=== PATIENT | female | born 1935 | race Caucasian/White ===

== ENCOUNTER 2020-03-21 19:58 | Inpatient (IN) | payer MEDICARE, OTHER ==
[~2020-03-21] VITALS: Ht 152.4 cm; Wt 47.6 kg
--- NOTE | 2020-03-21 20:50 | NUR ---
patient Monico, from a house in [facility] came in for r/o PNA. On 02 @ 4lmp. Connected to the monitor and pulse ox. kept comfortable, will continue to monitor accordingly.
[2020-03-21 20:51] LABS: BASOPHILS # (AUTO) 0.1 /CMM (0.0-0.2); BASOPHILS % (AUTO) 0.4 % (0.0-2.0); EOSINOPHILS % (AUTO) 0.2 % (0.0-6.0); HEMATOCRIT 39 % (33-45); HEMOGLOBIN 11.8 g/dL (11.5-14.8); LYMPHOCYTES # (AUTO) 2.4 /CMM (0.8-4.8); LYMPHOCYTES % (AUTO) 17.9 % (20.0-44.0); MEAN CORPUSCULAR HGB CONC 30 g/dl (31.0-36.0); MEAN CORPUSCULAR VOLUME 98 fL (82-100); MONOCYTES # (AUTO) 1.1 /CMM (0.1-1.30); MONOCYTES % (AUTO) 8.3 % (2.0-12.0); NEUTROPHILS # (AUTO) 9.9 /CMM (1.8-8.9); NEUTROPHILS % (AUTO) 73.2 % (43.0-81.0); PLATELET COUNT (AUTO) 476 /CMM (150-450); RED BLOOD CELL COUNT(AUTO) 4.04 MIL/uL (4.0-5.2); WHITE BLOOD COUNT (AUTO) 13.5 K/uL (4.3-11.0)
--- NOTE | 2020-03-21 20:51 | NUR ---
IV access initiated and blood drawned and sent to lab.
--- NOTE | 2020-03-21 20:51 | NUR ---
urine collected and sent to lab
[2020-03-21 20:54] LABS: BILIRUBIN,URINE Negative (NEGATIVE); BLOOD, URINE Trace-lysed Ery/uL (NEGATIVE); COLOR,URINE YELLOW (YELLOW); LEUKOCYTE ESTERASE ,URINE Small (NEGATIVE); NITRITE, URINE Negative (NEGATIVE); PROTEIN,URINE >=300 mg/dl (NEGATIVE); UGLUCOSE Negative (NEGATIVE)
[2020-03-21 21:00] LABS: BACTERIA,URINE 2+ /HPF (None Seen); SQUAMOUS EPITHELIAL CELL,UR Few /HPF (None Seen)
[2020-03-21 21:14] LABS: ALANINE AMINOTRANSFERASE 147 U/L (12-78); ALBUMIN 3.2 g/dL (3.4-5.0); ALKALINE PHOSPHATASE 218 U/L (46-116); ASPARTATE AMINOTRANSFERASE 136 U/L (15-37); BILIRUBIN,DIRECT 0.2 mg/dL (0.0-0.2); BILIRUBIN,TOTAL 0.4 mg/dL (0.2-1.0); CALCIUM, SERUM 11.5 mg/dL (8.5-10.1); CARBON DIOXIDE 25 mmol/L (21-32); CHLORIDE 122 mmol/L (98-107); CREATININE 2.6 mg/dL (0.6-1.3); GLUCOSE 135 mg/dL (74-106); POTASSIUM 4.8 mmol/L (3.5-5.1); TOTAL PROTEIN, SERUM 8.8 g/dL (6.4-8.2)
[2020-03-21 21:48] LABS: SODIUM SERUM 161 mmol/L (136-145); UREA NITROGEN, BLOOD 80 mg/dL (7-18)
[2020-03-21] MEDS ORDERED: NS 0.9% IV ONE (22:00)
[2020-03-21] MEDS ORDERED: ASPIRIN 300 MG/SUPP.RECT RC ONE (22:00)
[2020-03-21] MEDS ORDERED: MEROPENEM 1,000 MG in IV NS 0.9% 100 ML IV ONE (22:00)
[2020-03-21] MEDS ORDERED: TRAZ-182 PO (22:55)
[2020-03-21] MEDS ORDERED: HYDR-4077 PO (22:55)
[2020-03-21] MEDS ORDERED: CARB1TAB21 PO (22:55)
[2020-03-21] MEDS ORDERED: RISP0.5T5 PO (22:55)
[2020-03-21] MEDS ORDERED: METO100T14 PO (22:55)
[2020-03-21] MEDS ORDERED: FURO-144 PO (22:55)
[2020-03-21] MEDS ORDERED: DILT180C93 PO (22:55)
--- NOTE | 2020-03-21 22:55 | NUR ---
PER DAUGHTER, PT IS ON HOSPICE. POLST: DNR, SELECTIVE MEASURE, DNI, WILL BRING COPY TO HOSPITAL TOMORROW. MED RECON DONE
--- NOTE | 2020-03-21 22:55 | NUR ---
YFN [phone]
--- NOTE | 2020-03-21 23:01 | NUR ---
REPORT GIVEN TO PERLA MOTA FOR DIANA PT WILLB E TRANSPORTED TO 2ND FLOOR
[2020-03-21] MEDS ORDERED: MAGNESIUM HYDROXIDE 30 ML UDC PO PRN (23:30)
[2020-03-21] MEDS ORDERED: ONDANSETRON HCL/PF 4 MG/2 ML VIAL IVP PRN (23:30)
[2020-03-21] MEDS ORDERED: DEXTROSE 50%-WATER 50 ML DISP.SYRIN IV PRN (23:30)
[2020-03-21] MEDS ORDERED: ACETAMINOPHEN 325 MG TABLET PO PRN (23:30)
[2020-03-21] MEDS ORDERED: MAG HYDROX/AL HYDROX/SIMETH 30 ML UDC PO PRN (23:30)
[2020-03-21] MEDS ORDERED: *INSULIN REGULAR(HUMULIN R)HUM 100 UNIT/ML VIAL SQ PRN (23:30)
[2020-03-21] MEDS ORDERED: Z GUARD REMEDY 2 OZ OINT TP PRN (23:30)
[2020-03-21] MEDS ORDERED: HYDROCODONE/APAP 5/325MG TABLET PO PRN (23:30)
[2020-03-22] VITALS: BP 122/75
--- NOTE | 2020-03-22 01:03 | NUR ---
want to clarify code status dpoa number not working; not listed on face sheet. -attempted to call daughter celina flores listed by kayley jenkins not working. states number needs to have 1 dialed before despite dialing number does not pass through to ring and error message results. call made to er and requested call back from kayley augustin states he is busy with patient. Addendum: 03/22/20 at 5087 by NII BELL RN discovered that with her phone land line did not work; connected with cell phone
[2020-03-22] MEDS ORDERED: TEMA30CA PO (01:44)
--- NOTE | 2020-03-22 01:45 | NUR ---
called and spoke to celina admission assessment performed. states she will fax polst record tomorrow am. and will fax some of pts medical record with medications to place on chart. was on [facility] prior to revocation. upadted with poc questions concerns addressed.
--- NOTE | 2020-03-22 01:46 | NUR ---
CALL MADE TO ER FACE SHEET UPDATED. WITH DTR AND GRAND DTR. FIRST CONTACT: YFN DEGROOT GRAND DAGTER GUICHO DEGROOT PHONE [phone] (SPEAKS ONLY BELIZEAN)
[2020-03-22] MEDS: IV 1/2NS 1000 ML 1,000 ML IV SCH ×2 (02:19→12:23)
[2020-03-22] MEDS ORDERED: CEFTRIAXONE 1 G VIAL ONE (02:42)
[2020-03-22] MEDS: CEFTRIAXONE 1 G in IV D5W 50 ML IV SCH ×2 (03:22→23:43)
[2020-03-22 04:00] VITALS: BP 130/75
[2020-03-22] MEDS: BLOOD SUGAR DIAGNOSTIC 1 EACH STRIP VI SCH ×4 (07:32→23:44)
[2020-03-22 07:34] LABS: BASOPHILS % (AUTO) 0.3 % (0.0-2.0); EOSINOPHILS % (AUTO) 0.4 % (0.0-6.0); HEMATOCRIT 31 % (33-45); HEMOGLOBIN 9.3 g/dL (11.5-14.8); LYMPHOCYTES # (AUTO) 1.6 /CMM (0.8-4.8); LYMPHOCYTES % (AUTO) 12.6 % (20.0-44.0); MEAN CORPUSCULAR HGB CONC 31 g/dl (31.0-36.0); MEAN CORPUSCULAR VOLUME 96 fL (82-100); MONOCYTES # (AUTO) 1.1 /CMM (0.1-1.30); MONOCYTES % (AUTO) 8.7 % (2.0-12.0); NEUTROPHILS # (AUTO) 9.9 /CMM (1.8-8.9); PLATELET COUNT (AUTO) 335 /CMM (150-450); RED BLOOD CELL COUNT(AUTO) 3.18 MIL/uL (4.0-5.2); WHITE BLOOD COUNT (AUTO) 12.8 K/uL (4.3-11.0)
--- NOTE | 2020-03-22 07:35 | NUR ---
IRON MELTER NOTE PATIENT IN BED RESTING COMFORTABLY. PATIENT IN NO ACUTE DISTRESS. NO SOB NOTED. PATIENT BREATHING IS EVEN AND UNLABORED. PATIENT ON CARDIAC MONITORING READING SINUS RHYTHM HR 98. PATIENT SAFETY PRECAUTIONS IN PLACE. BED ALARM IS ON. PATIENT BED IS LOCKED AND IN LOWEST POSITION. CALL LIGHT WITHIN REACH. WILL CONTINUE TO MONITOR.
[2020-03-22 07:46] LABS: CHOLESTEROL 172 mg/dL (<200); HDL CHOLESTEROL 36 mg/dL (40-60); LDL 107 mg/dL (0-99); TRIGLYCERIDES 111 mg/dL (30-150)
[2020-03-22 07:51] LABS: CALCIUM, SERUM 9.3 mg/dL (8.5-10.1); CARBON DIOXIDE 22 mmol/L (21-32); CREATININE 2.1 mg/dL (0.6-1.3); GLUCOSE 102 mg/dL (74-106); MAGNESIUM 3.1 mg/dL (1.8-2.4); PHOSPHORUS 3.2 mg/dL (2.5-4.9); POTASSIUM 4.3 mmol/L (3.5-5.1); UREA NITROGEN, BLOOD 70 mg/dL (7-18)
[2020-03-22 08:00] VITALS: BP 124/81
[2020-03-22 08:09] LABS: CHLORIDE 126 mmol/L (98-107)
[2020-03-22 08:10] LABS: SODIUM SERUM 162 mmol/L (136-145)
[2020-03-22] MEDS: DILTIAZEM HCL CD 180 MG PO SCH (09:08)
[2020-03-22] MEDS: hydrALAZINE HCL 50 MG TABLET PO SCH ×2 (09:08→17:59)
[2020-03-22] MEDS: CARBIDOPA/LEVODOPA 25/100 MG 1 UDTAB PO SCH ×3 (09:08→18:00)
[2020-03-22] MEDS: METOPROLOL TARTRATE 50 MG TABLET PO SCH ×2 (09:09→18:00)
--- NOTE | 2020-03-22 09:11 | NUR ---
WOUND CARE CONSULT: REVIEWED CHART, NURSING DOCUMENTATION AND PHOTO WHICH INDICATES INTACT DEEP TISSUE INJURY TO SACRUM EXTENDING TO LEFT BUTTOCK, PRESENT ON ADMISSION. RECOMMENDATIONS MADE FOR SKIN PROTECTION. DISCUSSED WITH NURSING STAFF. PT TO BE PLACED ON ALVARO ISOFLEX LOW AIRLOSS BED. MD IN AGREEMENT WITH PLAN OF CARE.
--- NOTE | 2020-03-22 10:13 | NUR ---
CHIEF PSYCHOLOGY NOTE PATIENT SODIUM LEVEL WAS 162. DR. BLANCHARD MADE AWARE. NO NEW ORDERS AT THIS TIME.
--- NOTE | 2020-03-22 11:42 | NUR ---
INTERNATIONAL SALES REPRESENTATIVE NOTE DR. BLANCHARD SEEN AND EVALUATED PATIENT. INFORMED DR. BLANCHARD OF VTE SCORE AND NEED FOR CHEMICAL PROPHYLAXIS. PER MD NO ORDER FOR CHEMICAL PROPHYLAXIS.
--- NOTE | 2020-03-22 11:50 | NUR ---
IT WEB DEVELOPMENT CONSULTANT NOTE PATIENT BLOOD SUGAR IS 101. NO INSULIN COVERAGE NEEDED PER PROTOCOL.
[2020-03-22 12:00] VITALS: BP 100/63
--- NOTE | 2020-03-22 12:06 | NUR ---
STIFF STRAW HAT WASHER NOTE PER JANET OWNER/PHOTOGRAPHER RECOMMENDATION TO START ON ENSURE BID.
[2020-03-22] MEDS: ENSURE ENLIVE 237 ML LIQUID (VANILLA) PO SCH ×2 (12:54→17:59)
--- NOTE | 2020-03-22 15:43 | NUR ---
CHERRY GROWER NOTE SPOKE WITH DAUGHTER ANGELIC REGARDING IF SHE WILL FAX IN POLST. PER DAUGHTER SHE WILL BUT HAVE NO RECEIVED AT THIS TIME. FOLLOWED UP AND TRIED TO CALL DAUGHTER AND GRAND DAUGHTER YFN BUT NO ANSWER FROM PHONE CALLS.
[2020-03-22 16:00] VITALS: BP 124/72
[2020-03-22 16:46] LABS: C-REACTIVE PROTEIN 8.1 mg/dL (0.0-0.9)
[2020-03-22] MEDS ORDERED: ENSURE ENLIVE CHOC 237 ML CAN PO SCH (17:00)
--- NOTE | 2020-03-22 17:30 | NUR ---
SENIOR BILLING CONSULTANT NOTE PATIENT BLOOD SUGAR IS 86. NO INSULIN COVERAGE NEEDED PER PROTOCOL.
[2020-03-22] MEDS: risperiDONE 0.25 MG TABLET PO SCH (17:59)
[2020-03-22] MEDS: TRAZODONE 50 MG TABLET PO SCH (18:00)
--- NOTE | 2020-03-22 18:45 | NUR ---
SENIOR INTERNAL AUDITOR NOTE PATIENT IN BED RESTING COMFORTABLY. PATIENT IN NO ACUTE DISTRESS. NO SOB NOTED. PATIENT BREATHING IS EVEN AND UNLABORED. PATIENT ON CARDIAC MONITORING READING SINUS RHYTHM HR 87. PATIENT KEPT CLEAN, DRY, AND COMFORTABLE. PATIENT SAFETY PRECAUTIONS IN PLACE. BED ALARM IS ON. PATIENT BED IS LOCKED AND IN LOWEST POSITION. CALL LIGHT WITHIN REACH. WILL ENDORSE CARE TO PM SHIFT FOR DIANA.
--- NOTE | 2020-03-22 19:25 | NUR ---
BOTTLER NOTE SPOKE WITH YFN GRANDDAUGHTER SHE FAXED POLST BUT POLST IMAGE IS DARK. PER YFN SHE WILL DROP OFF A CLEARER COPY TOMORROW TO THE HOSPITAL.
--- NOTE | 2020-03-22 19:35 | NUR ---
ENVIRONMENTAL STUDIES PROGRAM DIRECTOR NOTES RECEIVED PATIENT IN BED RESTING COMFORTABLY. NO ACUTE DISTRESS. NO SOB NOTED. PATIENT BREATHING IS EVEN AND UNLABORED. PATIENT ON CARDIAC MONITORING READING SINUS RHYTHM HR 90s WITH PVCs. PATIENT KEPT CLEAN, DRY, AND COMFORTABLE. PATIENT SAFETY PRECAUTIONS IN PLACE. BED ALARM IS ON. PATIENT BED IS LOCKED AND IN LOWEST POSITION. CALL LIGHT WITHIN REACH. ALL NEEDS ANTICIPATED. WILL CONTINUE TO MONITOR ACCORDINGLY.
[2020-03-23 00:25] VITALS: BP 144/85
[2020-03-23] MEDS: IV 1/2NS 1000 ML 1,000 ML IV SCH ×3 (03:20→21:35)
[2020-03-23 04:58] VITALS: BP 145/78
[2020-03-23] MEDS: BLOOD SUGAR DIAGNOSTIC 1 EACH STRIP VI SCH ×4 (07:30→21:21)
--- NOTE | 2020-03-23 07:30 | NUR ---
OIL WELL DRILLING MANAGER NOTES ALL NEEDS ATTENDED. PATIENT IN BED RESTING COMFORTABLY. NO ACUTE DISTRESS. NO SOB NOTED. PATIENT BREATHING IS EVEN AND UNLABORED. PATIENT ON CARDIAC MONITORING READING SINUS RHYTHM HR 90s WITH PVCs. PATIENT KEPT CLEAN, DRY, AND COMFORTABLE. PATIENT SAFETY PRECAUTIONS IN PLACE. BED ALARM IS ON. PATIENT BED IS LOCKED AND IN LOWEST POSITION. CALL LIGHT WITHIN REACH. ALL NEEDS ANTICIPATED. ENDORSE FOR DIANA
--- NOTE | 2020-03-23 07:35 | NUR ---
MS RN RECEIVED ON BED, AWAKE,ORIENTED TO SELF,NOT IN ANY FORM OF DISTRESS, RESPIRATIONS EVEN AND UNLABORED,NO SOB NOTHET, WILL MONITOR PATIENT.
--- NOTE | 2020-03-23 08:00 | NUR ---
MS RN SPEECH EVAL DONE, W/ THIS LIQUIDS RECCOMENDED.
[2020-03-23 08:01] LABS: CALCIUM, SERUM 9.4 mg/dL (8.5-10.1); CARBON DIOXIDE 22 mmol/L (21-32); CHLORIDE 125 mmol/L (98-107); CREATININE 1.6 mg/dL (0.6-1.3); GLUCOSE 98 mg/dL (74-106); MAGNESIUM 2.9 mg/dL (1.8-2.4); PHOSPHORUS 2.5 mg/dL (2.5-4.9); POTASSIUM 4.2 mmol/L (3.5-5.1); UREA NITROGEN, BLOOD 54 mg/dL (7-18)
[2020-03-23 08:08] LABS: BASOPHILS # (AUTO) 0.1 /CMM (0.0-0.2); BASOPHILS % (AUTO) 0.6 % (0.0-2.0); EOSINOPHILS % (AUTO) 0.8 % (0.0-6.0); HEMATOCRIT 30 % (33-45); HEMOGLOBIN 9.4 g/dL (11.5-14.8); LYMPHOCYTES # (AUTO) 1.7 /CMM (0.8-4.8); LYMPHOCYTES % (AUTO) 13.2 % (20.0-44.0); MEAN CORPUSCULAR HGB CONC 32 g/dl (31.0-36.0); MEAN CORPUSCULAR VOLUME 95 fL (82-100); MONOCYTES # (AUTO) 0.8 /CMM (0.1-1.30); NEUTROPHILS # (AUTO) 9.9 /CMM (1.8-8.9); NEUTROPHILS % (AUTO) 79.4 % (43.0-81.0); PLATELET COUNT (AUTO) 288 /CMM (150-450); RED BLOOD CELL COUNT(AUTO) 3.11 MIL/uL (4.0-5.2); WHITE BLOOD COUNT (AUTO) 12.5 K/uL (4.3-11.0)
[2020-03-23 08:36] LABS: SODIUM SERUM 159 mmol/L (136-145)
[2020-03-23 09:04] VITALS: BP 146/76
[2020-03-23] MEDS: CARBIDOPA/LEVODOPA 25/100 MG 1 UDTAB PO SCH ×3 (09:54→18:30)
[2020-03-23] MEDS: hydrALAZINE HCL 50 MG TABLET PO SCH ×2 (09:54→18:29)
[2020-03-23] MEDS: METOPROLOL TARTRATE 50 MG TABLET PO SCH ×2 (09:55→18:30)
[2020-03-23] MEDS: DILTIAZEM HCL CD 180 MG PO SCH (09:56)
[2020-03-23] MEDS: ENSURE ENLIVE 237 ML LIQUID (VANILLA) PO SCH ×2 (09:57→18:31)
--- NOTE | 2020-03-23 10:00 | NUR ---
MS RN DUE MEDS GIVEN,TOLERATED WELL.
--- NOTE | 2020-03-23 10:20 | NUR ---
MS RN RECEIVED A CRITICAL HIGH RESULT OF NA LEVEL, MD AWARE, PATIENT'S LEVEL IS TRENDING DOWN.
[2020-03-23 12:24] LABS: CREATINE KINASE, TOTAL 242 U/L (26-192); FERRITIN 276 ng/mL (8-388)
[2020-03-23 13:32] VITALS: BP 107/60
[2020-03-23 13:35] LABS: LYMPHOCYTES % (MANUAL) 16 % (16-48); MONOCYTES % (MANUAL) 3 % (0-11.0); NEUTROPHILS % (MANUAL) 81 (42-76)
[2020-03-23] MEDS: INSULIN REGULAR, HUMAN 100 UNIT/ML 3 ML VIAL SQ PRN (14:24)
[2020-03-23 15:07] LABS: *SPE A/G RATIO 0.7 (0.7-1.7); *SPE ALBUMIN 2.4 g/dL (2.9-4.4); *SPE ALPHA-1-GLOBULIN 0.3 g/dL (0.0-0.4); *SPE ALPHA-2-GLOBULIN 1.3 g/dL (0.4-1.0); *SPE BETA GLOBULIN 1.2 g/dL (0.7-1.3); *SPE GLOBULIN, TOTAL 3.6 g/dL (2.2-3.9); *SPE M-SPIKE Not Observed g/dL (Not Observed); *SPEGAMMA GLOBULIN 0.7 g/dL (0.4-1.8)
--- NOTE | 2020-03-23 16:25 | NUR ---
MS RN ON BED, NO DISTRESS NOTED.
[2020-03-23 17:28] VITALS: BP 124/70
[2020-03-23] MEDS: TRAZODONE 50 MG TABLET PO SCH (18:29)
[2020-03-23] MEDS: risperiDONE 0.25 MG TABLET PO SCH (18:29)
[2020-03-23 20:00] VITALS: BP 109/64
--- NOTE | 2020-03-23 20:00 | NUR ---
RN NOTES RECEIVED PT. SLEEPING BUT AROUSABLE, SR WITH PVC'S ON TELE MONITOR HR-82, NOT IN DISTRESS, A/OX1, BED IN LOCKED POSITION, SIDERAILSUPX2, CONTINUE TO MONITOR
[2020-03-23] MEDS: CEFTRIAXONE 1 G in IV D5W 50 ML IV SCH (23:16)
[2020-03-24] VITALS: BP 127/65
[2020-03-24 04:00] VITALS: BP_SYST 118; BP_SYST 134; BP_DIAS 30
--- NOTE | 2020-03-24 06:20 | NUR ---
RN NOTES SLEEPING BUT AROUSABLE, NOT IN DISTRESS, NO PAIN NOTED, MORNING CARE RENDERED, SIDERAILSUPX2, PT. NEEDS ATTENDED
[2020-03-24] MEDS: BLOOD SUGAR DIAGNOSTIC 1 EACH STRIP VI SCH ×4 (07:42→21:37)
[2020-03-24 08:00] VITALS: BP 126/63
[2020-03-24 08:20] LABS: BASOPHILS % (AUTO) 0.3 % (0.0-2.0); EOSINOPHILS % (AUTO) 1.8 % (0.0-6.0); HEMATOCRIT 28 % (33-45); HEMOGLOBIN 8.7 g/dL (11.5-14.8); LYMPHOCYTES # (AUTO) 1.5 /CMM (0.8-4.8); LYMPHOCYTES % (AUTO) 9.4 % (20.0-44.0); MEAN CORPUSCULAR HGB CONC 31 g/dl (31.0-36.0); MEAN CORPUSCULAR VOLUME 95 fL (82-100); MONOCYTES # (AUTO) 0.7 /CMM (0.1-1.30); MONOCYTES % (AUTO) 4.3 % (2.0-12.0); NEUTROPHILS # (AUTO) 13.2 /CMM (1.8-8.9); NEUTROPHILS % (AUTO) 84.2 % (43.0-81.0); PLATELET COUNT (AUTO) 289 /CMM (150-450); RED BLOOD CELL COUNT(AUTO) 2.91 MIL/uL (4.0-5.2); WHITE BLOOD COUNT (AUTO) 15.6 K/uL (4.3-11.0)
--- NOTE | 2020-03-24 08:20 | NUR ---
RN NOTES PT RECEIVED ALERT IN BED ORIENTED X1. NO SIGNS OF DISTRESS VISIBLE OR REPORTED. PT ON 3 L OF O2. HAS IV ACCESS ON THE RIGHT AC NO REDNESS SWELLING OR PAIN NOTED. CALL LIGHT WITHIN REACH. BED LOCKED IN PLACE WILL CONTINUE TO MONITOR
[2020-03-24 08:39] LABS: CALCIUM, SERUM 9.3 mg/dL (8.5-10.1); CARBON DIOXIDE 24 mmol/L (21-32); CHLORIDE 123 mmol/L (98-107); CREATININE 1.6 mg/dL (0.6-1.3); GLUCOSE 109 mg/dL (74-106); MAGNESIUM 2.8 mg/dL (1.8-2.4); POTASSIUM 3.8 mmol/L (3.5-5.1); UREA NITROGEN, BLOOD 48 mg/dL (7-18)
[2020-03-24 08:54] LABS: SODIUM SERUM 158 mmol/L (136-145)
[2020-03-24] MEDS: CARBIDOPA/LEVODOPA 25/100 MG 1 UDTAB PO SCH ×3 (09:37→17:33)
[2020-03-24] MEDS: hydrALAZINE HCL 50 MG TABLET PO SCH ×2 (09:37→17:00)
[2020-03-24] MEDS: METOPROLOL TARTRATE 50 MG TABLET PO SCH ×2 (09:38→17:00)
[2020-03-24] MEDS: ENSURE ENLIVE 237 ML LIQUID (VANILLA) PO SCH ×2 (09:39→17:36)
[2020-03-24] MEDS: DILTIAZEM HCL CD 180 MG PO SCH (09:41)
[2020-03-24] MEDS: IV D5W 1,000 ML IV PRN ×2 (12:11→21:42)
[2020-03-24 12:54] VITALS: BP 112/61
[2020-03-24] MEDS: INSULIN REGULAR, HUMAN 100 UNIT/ML 3 ML VIAL SQ PRN (13:13)
--- NOTE | 2020-03-24 13:38 | NUR ---
pt refused to eat lunch even when offered snacks or other food of choice,pt insists to refuse.Held pt's insulin.
[2020-03-24] MEDS ORDERED: K PHOS NEUTRAL 250 MG TABLET PO ONE (14:30)
--- NOTE | 2020-03-24 14:32 | NUR ---
[facility]IFT[facility]KHAR DEGROOT WHO IS THE D.O.N. OF [facility] WHERE PT IS A HOSPICE PT.IFTIKHAR WANTS PT TO BE DISCHARGED UNDER [facility] CARE.PT HAS POOR ORAL INTAKE HERE IN THE HOSPITAL AND EVEN AT HOME PER FAMILY.
--- NOTE | 2020-03-24 16:00 | NUR ---
TRANSFERRED PT TO 310-1 WITH STABLE V/S.COVID PCR NEGATIVE.GAVE REPORT TO NAKUL INFANTE WITH MEDS AND BELONGINGS.
--- NOTE | 2020-03-24 16:10 | NUR ---
TELE/RN NOTES RECEIVED REPORT FROM MULUGETA. PATIENT IN NO APPARENT RESPIRATORY DISTRESS NOTED. ON OXYGEN 2L/MIN TOLERATING WELL. NO SIGN AND SYMPTOM OF PAIN. WILL CONTINUE TO MONITOR.
[2020-03-24] MEDS: TRAZODONE 50 MG TABLET PO SCH (17:33)
[2020-03-24] MEDS: risperiDONE 0.25 MG TABLET PO SCH (17:37)
--- NOTE | 2020-03-24 18:01 | NUR ---
TELE/RN NOTES BP 118/68 P 70 METOPROLOL 50MG 1 TAB AND HYDRALAZINE 50MG 1 TAB WAS NOT ADMINISTERED. WILL CONTINUE TO MONITOR.
--- NOTE | 2020-03-24 19:00 | NUR ---
MS/RN CLOSING NOTES PATIENT IS ON BED,ALERT AND ORIENTED X1.PATIENT IN NO APPARENT RESPIRATORY DISTRESS NOTED AT THIS TIME. NO SIGN AND SYMPTOM OF PAIN NOTED AT THIS TIME. TELE MONITOR IN PLACED READING V PACE 72-77 BPM. IV ACCESS AT RIGHT AC #18 WITH IV FLUID OF D5W 1L AT 100 ML/HR ON AND INFUSING WELL. SEEN AND EXAMINED BY MD WITH ORDERS MADE AND CARRIED OUT. ALL DUE MEDICATION WAS GIVEN. SAFETY PRECAUTION WAS IN PLACED. BED IN LOWEST POSITION AND LOCKED. SIDERAILS UP X2 AND LOCKED. CALL LIGHT WITHIN REACH. WILL ENDORSED TO POURER FOR DIANA. Addendum: 03/24/20 at 1901 by ARELIS NANCE RN ERROR
--- NOTE | 2020-03-24 19:01 | NUR ---
TELE/RN CLOSING NOTES PATIENT IS ON BED,ALERT AND ORIENTED X1.PATIENT IN NO APPARENT RESPIRATORY DISTRESS NOTED AT THIS TIME. NO SIGN AND SYMPTOM OF PAIN NOTED AT THIS TIME. TELE MONITOR IN PLACED READING V PACE 72-77 BPM. IV ACCESS AT RIGHT AC #18 WITH IV FLUID OF D5W 1L AT 100 ML/HR ON AND INFUSING WELL. SEEN AND EXAMINED BY MD WITH ORDERS MADE AND CARRIED OUT. ALL DUE MEDICATION WAS GIVEN. SAFETY PRECAUTION WAS IN PLACED. BED IN LOWEST POSITION AND LOCKED. SIDERAILS UP X2 AND LOCKED. CALL LIGHT WITHIN REACH. WILL ENDORSED TO SEPARATOR OPERATOR FOR DIANA.
--- NOTE | 2020-03-24 19:05 | NUR ---
intern opening notes received patient in bed alert and oriented x1, eye open ,on 2 l via nc tolerating well, no sob no distress present, on tele monitoring sr 77. iv site to right ac #18 g intact and patent, no redness, no infiltration present, ivf running as ordered, oriented to staff and call light and kept within reach, low bed and locked, bed alarm in place, all needs attended at this time, will continue to monitor and attend to needs.remains comfortable.
[2020-03-24 20:00] VITALS: BP 122/63
[2020-03-24] MEDS: CEFTRIAXONE 1 G in IV D5W 50 ML IV SCH (22:32)
--- NOTE | 2020-03-24 22:53 | NUR ---
KNOCKOUT MAN CLOSING NOTES REPORT GIVEN TO DIANA FOR CONTINUITY OF CARE, SR 76 PATIENT IS STABLE.
--- NOTE | 2020-03-24 23:00 | NUR ---
RN NOTES RECEIVED PT. FROM ANOTHER NURSE, PT. IS SLEEPING BUT AROUSABLE, NOT IN DISTRESS, NO PAIN NOTED, SIDERAILSUPX2, CONTINUE TO MONITOR
--- NOTE | 2020-03-25 05:00 | NUR ---
RN NOTES IV GOT INFILTRATED, NEW IV LI9NE INSERTED ON THE LEFT HAND GAUGE 22
--- NOTE | 2020-03-25 06:45 | NUR ---
RN NOTES SLEEPING BUT AROUSABLE. NOT IN DISTRESS, NO PAIN NOTED, MORNING CARE RENDERED, PT. NEEDS ATTENDED
[2020-03-25 08:00] VITALS: BP 130/80
--- NOTE | 2020-03-25 08:00 | NUR ---
RN NOTES RECEIVED PT IN BED SLEEPING BUT AROUSABLE, NO DISTRESS VISIBLE OR REPORTED, NO PAIN NOTED, SIDERAILSUPX2, CALL LIGHT WITHIN REACH . ALL NURSING NEEDS MET AT THIS TIME CONTINUE TO MONITOR
[2020-03-25] MEDS: BLOOD SUGAR DIAGNOSTIC 1 EACH STRIP VI SCH ×4 (08:11→22:45)
[2020-03-25] MEDS: METOPROLOL TARTRATE 50 MG TABLET PO SCH ×2 (09:14→17:00)
[2020-03-25] MEDS: CARBIDOPA/LEVODOPA 25/100 MG 1 UDTAB PO SCH ×3 (09:14→17:21)
[2020-03-25] MEDS: DILTIAZEM HCL CD 180 MG PO SCH (09:15)
[2020-03-25] MEDS: hydrALAZINE HCL 50 MG TABLET PO SCH ×2 (09:15→17:00)
[2020-03-25] MEDS: ENSURE ENLIVE 237 ML LIQUID (VANILLA) PO SCH ×2 (09:15→17:15)
[2020-03-25] MEDS: IV D5W 1,000 ML IV PRN ×2 (11:06→22:34)
[2020-03-25 11:40] LABS: BASOPHILS % (AUTO) 0.2 % (0.0-2.0); EOSINOPHILS % (AUTO) 1.7 % (0.0-6.0); HEMATOCRIT 29 % (33-45); LYMPHOCYTES # (AUTO) 1.2 /CMM (0.8-4.8); LYMPHOCYTES % (AUTO) 8.6 % (20.0-44.0); MEAN CORPUSCULAR HGB CONC 31 g/dl (31.0-36.0); MEAN CORPUSCULAR VOLUME 95 fL (82-100); MONOCYTES # (AUTO) 0.5 /CMM (0.1-1.30); MONOCYTES % (AUTO) 3.4 % (2.0-12.0); NEUTROPHILS # (AUTO) 11.9 /CMM (1.8-8.9); NEUTROPHILS % (AUTO) 86.1 % (43.0-81.0); PLATELET COUNT (AUTO) 251 /CMM (150-450); RED BLOOD CELL COUNT(AUTO) 3.02 MIL/uL (4.0-5.2); WHITE BLOOD COUNT (AUTO) 13.9 K/uL (4.3-11.0)
[2020-03-25 11:57] LABS: CALCIUM, SERUM 9.2 mg/dL (8.5-10.1); CREATININE 1.3 mg/dL (0.6-1.3); PHOSPHORUS 2.5 mg/dL (2.5-4.9); POTASSIUM 3.8 mmol/L (3.5-5.1)
--- NOTE | 2020-03-25 13:10 | NUR ---
PT REFUSED TO EAT LUNCH.HELD INSULIN ADMINISTRATION.
[2020-03-25] MEDS ORDERED: CEPH-570 PO (14:22)
[2020-03-25 16:00] VITALS: BP 111/72
--- NOTE | 2020-03-25 16:20 | NUR ---
BROADCAST OPERATIONS TECHNICIAN CALLED SAYING THAT PT'S DISCHARGE WAS HELD BECAUSE FAMILY IS APPEALING FOR PT TO STAY IN THE HOSPITAL TILL SATURDAY.DRIVER LICENSE EXAMINER,GENE AMOS.
--- NOTE | 2020-03-25 17:30 | NUR ---
RN NOTES HELD INSULIN PATIENT DIDN'T EAT DINNER
[2020-03-25] MEDS: TRAZODONE 50 MG TABLET PO SCH (17:52)
[2020-03-25] MEDS: risperiDONE 0.25 MG TABLET PO SCH (17:53)
--- NOTE | 2020-03-25 18:18 | NUR ---
RN NOTES PT IN BED SLEEPING BUT AROUSABLE, NO DISTRESS VISIBLE OR REPORTED, NO PAIN NOTED, SIDERAILSUPX2, CALL LIGHT WITHIN REACH. ON 2 L OF OXYGEN VIA NASAL CANULA NURSING NEEDS MET AT THIS TIME CONTINUE TO MONITOR
--- NOTE | 2020-03-25 19:15 | NUR ---
RN NOTES: RECEIVED LYING ON BED COMFORTABLY, ON SR-71, A/OX1, INCONTINENT BOTH B/B, IVF OF D5W AT 100 ML/HR ONGOING, IV SITE ON RAC G#18 PATENT AND INTACT, ORIENTED TO UNIT AND STAFF, FALL, SAFETY AND ASPIRATION PRECAUTION OBSERVED, BED LOW AND LOCKED, CALL LIGHT WITHIN EASY REACH.
[2020-03-25 20:00] VITALS: BP 150/76
--- NOTE | 2020-03-25 21:56 | NUR ---
RN NOTES: ENDORSED TO KAYLEIGH/NAKUL FOR CONTINUITY OF CARE.
--- NOTE | 2020-03-25 22:00 | NUR ---
dirt bike racer opening notes Received Pt from NAKUL Albrecht. Pt is resting in bed comfortably. Pt is alert and orientedX1. Respiration is normal in 2 L NC. No SOB. No S/S of distress noted. Tele monitor showed SR. IV site at RAc# 18 is clean, intact and infusing well D5W @ 100 ml/hr. Safety precautions is maintained. Bed at low position, brakes locked, side rails upX3 and call light is within reach. Will continue to monitor.
[2020-03-25] MEDS: CEFTRIAXONE 1 G in IV D5W 50 ML IV SCH (22:36)
[2020-03-26] VITALS: BP 146/69
--- NOTE | 2020-03-26 07:00 | NUR ---
head grinder closing notes Pt is resting in bed comfortably. Pt is alert and orientedX1. Respiration is normal in 2 L NC. No SOB. No S/S of distress noted. Tele monitor showed SR HR at 65. IV site at RAc# 18 is clean, intact and infusing well D5W @ 100 ml/hr. Routine meds were given as ordered. Safety precautions is maintained. Bed at low position, brakes locked, side rails upX3 and call light is within reach. Will endorse to morning nurse for DIANA.
[2020-03-26] MEDS: BLOOD SUGAR DIAGNOSTIC 1 EACH STRIP VI SCH ×4 (07:06→23:18)
--- NOTE | 2020-03-26 07:45 | NUR ---
RN OPENING NOTE Patient is resting in bed, A/O x1, showing no signs of acute distress or sob, saturating 100% on 2L NC. Tele SR 60s, IV line in the RAC#18g is clean and intact running D5W@100ml/hr. Bed is in lowest position, side rails x2 in upright position, call light is within reach, fall safety and aspiration precautions enforced. Will continue with plan of care.
[2020-03-26 08:00] VITALS: BP 153/77
[2020-03-26] MEDS: DILTIAZEM HCL CD 180 MG PO SCH (09:26)
[2020-03-26] MEDS: hydrALAZINE HCL 50 MG TABLET PO SCH ×2 (09:26→17:00)
[2020-03-26] MEDS: METOPROLOL TARTRATE 50 MG TABLET PO SCH ×2 (09:26→17:00)
[2020-03-26] MEDS: CARBIDOPA/LEVODOPA 25/100 MG 1 UDTAB PO SCH ×3 (09:26→18:03)
[2020-03-26] MEDS: ENSURE ENLIVE 237 ML LIQUID (VANILLA) PO SCH ×2 (09:27→18:04)
[2020-03-26] MEDS: INSULIN REGULAR, HUMAN 100 UNIT/ML 3 ML VIAL SQ PRN ×2 (12:01→18:05)
[2020-03-26 16:00] VITALS: BP 102/54
[2020-03-26] MEDS: risperiDONE 0.25 MG TABLET PO SCH (18:03)
[2020-03-26] MEDS: TRAZODONE 50 MG TABLET PO SCH (18:03)
--- NOTE | 2020-03-26 19:30 | NUR ---
WAGON DRILLER OPENING NOTE RECEIVED PATIENT IN BED. A/OX1. ON OXYGEN 2L/MIN VIA NASAL CANNULA. RESPIRATIONS ARE EVEN AND UNLABORED. NO S/S SOB NOTED. C/O HEADACHE. EXTERNAL TELE MONITOR READ SINUS TACHY 104. IN NO APPARENT DISTRESS. IV ACCESS IN RAC#20 RUNNING D5W@100ML/HR. BED REMAINS LOW AND LOCKED, HOB ELEVATED IN SEMI FOWLERS, SIDE RAILS UP X2, CALL LIGHT WITHIN REACH. WILL CONTINUE TO MONITOR.
--- NOTE | 2020-03-26 19:30 | NUR ---
RN CLOSING NOTE Patient is resting in bed, A/O x1, showing no signs of acute distress or sob, saturating 100% on 2L NC. Tele SR 60s, IV line in the RAC#18g is clean and intact running D5W@100ml/hr. All patient needs met, all due medications, given patient kept clean and dry throughout shift. Skin protection measures implemented, patient turned and repositioned. Bed is in lowest position, side rails x2 in upright position, call light is within reach, fall safety and aspiration precautions enforced. Will endorse to conference services manager.
[2020-03-26 20:00] VITALS: BP 108/59
[2020-03-26] MEDS: CEFTRIAXONE 1 G in IV D5W 50 ML IV SCH (23:22)
[2020-03-27] VITALS: BP 112/61
[2020-03-27 04:00] VITALS: BP 117/74
[2020-03-27] MEDS: IV D5W 1,000 ML IV PRN (06:17)
[2020-03-27] MEDS: BLOOD SUGAR DIAGNOSTIC 1 EACH STRIP VI SCH ×3 (06:17→17:25)
--- NOTE | 2020-03-27 07:30 | NUR ---
MEDICAL SUPERINTENDENT CLOSING NOTE PATIENT RESTING IN BED. A/OX1. REMAIN ON OXYGEN 2L/MIN VIA NASAL CANNULA. NO RESP DISTRESS. NO PAIN T/O SHIFT. EXTERNAL TELE MONITOR READ SINUS TACHY. NO DISTRESS. IV ACCESS MAINTAINED IN RAC#20 RUNNING D5W@100ML/HR. BED REMAINS LOW AND LOCKED, HOB ELEVATED IN SEMI FOWLERS, SIDE RAILS UP X2, CALL LIGHT WITHIN REACH. WILL ENDORSE TO NEXT SHIFT.
[2020-03-27 08:00] VITALS: BP 125/62
[2020-03-27] MEDS: hydrALAZINE HCL 50 MG TABLET PO SCH ×2 (10:09→17:05)
[2020-03-27] MEDS: DILTIAZEM HCL CD 180 MG PO SCH (10:09)
[2020-03-27] MEDS: CARBIDOPA/LEVODOPA 25/100 MG 1 UDTAB PO SCH ×3 (10:10→17:04)
[2020-03-27] MEDS: METOPROLOL TARTRATE 50 MG TABLET PO SCH ×2 (10:10→17:04)
[2020-03-27] MEDS: ENSURE ENLIVE 237 ML LIQUID (VANILLA) PO SCH ×2 (10:10→17:05)
[2020-03-27 13:19] LABS: BASOPHILS % (AUTO) 0.3 % (0.0-2.0); EOSINOPHILS % (AUTO) 2.7 % (0.0-6.0); HEMATOCRIT 24 % (33-45); HEMOGLOBIN 7.8 g/dL (11.5-14.8); LYMPHOCYTES # (AUTO) 1.4 /CMM (0.8-4.8); LYMPHOCYTES % (AUTO) 10.8 % (20.0-44.0); MEAN CORPUSCULAR HGB CONC 33 g/dl (31.0-36.0); MEAN CORPUSCULAR VOLUME 91 fL (82-100); MONOCYTES # (AUTO) 0.7 /CMM (0.1-1.30); MONOCYTES % (AUTO) 5.3 % (2.0-12.0); NEUTROPHILS # (AUTO) 10.8 /CMM (1.8-8.9); NEUTROPHILS % (AUTO) 80.9 % (43.0-81.0); PLATELET COUNT (AUTO) 248 /CMM (150-450); RED BLOOD CELL COUNT(AUTO) 2.61 MIL/uL (4.0-5.2); WHITE BLOOD COUNT (AUTO) 13.4 K/uL (4.3-11.0)
[2020-03-27 16:42] LABS: ALBUMIN 2.2 g/dL (3.4-5.0); BILIRUBIN,TOTAL 0.2 mg/dL (0.2-1.0); CALCIUM, SERUM 8.8 mg/dL (8.5-10.1); CREATININE 1.2 mg/dL (0.6-1.3); MAGNESIUM 2.5 mg/dL (1.8-2.4); POTASSIUM 3.7 mmol/L (3.5-5.1); TOTAL PROTEIN, SERUM 5.9 g/dL (6.4-8.2)
[2020-03-27] MEDS: TRAZODONE 50 MG TABLET PO SCH (17:04)
[2020-03-27] MEDS: risperiDONE 0.25 MG TABLET PO SCH (17:04)
[2020-03-27 17:05] VITALS: BP 113/73
--- NOTE | 2020-03-27 18:15 | NUR ---
PRESS CUTTER NOTE Patient is medically cleared for discharge. A?O x1, showing no signs of acute distress or SOB, sat 98% on RA. IV line removed. Skin assessed, photos taken and placed in chart. Patient turned and repositioned, kept clean and dry, skin protection done as odered. All patient needs met, all due medications given. Patient picked up by ambulance en route to home hospice. Charge nurse aware, aware.
== END 2020-03-27 18:10 | disposition hospice, home (50) | DRG 871 ==
LOC: ER 19:58 → EDSEX 22:34 → TELE2 22:34 → TELE 03-24 15:57
PROVIDERS: ADMIT Internal Medicine
DX: A41.9 Sepsis, unspecified organism (principal); E43 Unspecified severe protein-calorie malnutrition; G93.41 Metabolic encephalopathy; N17.0 Acute kidney failure with tubular necrosis; I21.A1 Myocardial infarction type 2; I63.81 Other cerebral infarction due to occlusion or stenosis of small artery; N39.0 Urinary tract infection, site not specified; F03.91 Unspecified dementia, unspecified severity, with behavioral disturbance; D62 Acute posthemorrhagic anemia; E87.0 Hyperosmolality and hypernatremia; F03.90 Unspecified dementia, unspecified severity, without behavioral disturbance, psychotic disturbance, mood disturbance, and anxiety; E86.1 Hypovolemia; E83.52 Hypercalcemia; R77.1 Abnormality of globulin; E86.9 Volume depletion, unspecified; B96.20 Unspecified Escherichia coli [E. coli] as the cause of diseases classified elsewhere; E86.0 Dehydration; I11.0 Hypertensive heart disease with heart failure; I50.9 Heart failure, unspecified; Z86.73 Personal history of transient ischemic attack (TIA), and cerebral infarction without residual deficits
CPT/HCPCS: 36415; 70450-TC; 71045-TC; 80048-TC; 80053-TC; 80061-TC; 80076-TC; 81001; 82550-TC; 82553; 82728-TC; 82962-TC; 83605-TC; 83615-TC; 83735-TC; 84100-TC; 84155; 84165; 84484-TC; 85025-TC; 85378-TC; 85730-TC; 86140-TC; 87040-TC; 87081-TC; 87086-TC; 87186-TC; 92521; 92526; 97112-TC; 97530-TC; C9803; G0378; J0696; J1815; J2185; J3490; J7030; J7060; J7070; U0003